=== PATIENT | female | born 1940 | race Two or more races ===

== ENCOUNTER 2017-05-21 13:51 | Outpatient (CLI) | payer OTHER ==
[~2017-05-21 13:51] MED LIST: METFORMIN HCL850 MG; VALSARTAN40 MG; XARELTO20 MG
== END 2017-05-21 14:05 | disposition home or self-care (01) ==
LOC: MRI 13:51
DX: M51.36 Other intervertebral disc degeneration, lumbar region (principal); M54.16 Radiculopathy, lumbar region
CPT/HCPCS: 72146; 72148

== ENCOUNTER 2017-07-26 15:23 | Outpatient (CLI) | payer OTHER | END 2017-07-26 16:40 | disposition home or self-care (01) | LOC: RAD 501 15:23 | DX: M25.512 Pain in left shoulder (principal) ==

== ENCOUNTER 2017-07-27 10:30 | Outpatient (CLI) | payer OTHER | END 2017-07-27 15:00 | disposition home or self-care (01) | LOC: TOM 10:30 | DX: S60.222A Contusion of left hand, initial encounter (principal); S80.02XA Contusion of left knee, initial encounter; M54.5 Low back pain; S40.012A Contusion of left shoulder, initial encounter ==

== ENCOUNTER 2017-09-20 15:11 | Outpatient (CLI) | payer OTHER | END 2017-09-20 15:16 | disposition home or self-care (01) | LOC: RAD 501 15:11 | DX: M54.2 Cervicalgia (principal); S42.142D Displaced fracture of glenoid cavity of scapula, left shoulder, subsequent encounter for fracture with routine healing ==

== ENCOUNTER 2017-09-28 16:00 | Outpatient (CLI) | payer OTHER | END 2017-09-28 16:18 | disposition home or self-care (01) | LOC: RAD 16:00 | DX: M25.551 Pain in right hip (principal); M54.5 Low back pain ==

== ENCOUNTER 2018-07-02 12:49 | Outpatient (CLI) | payer OTHER | END 2018-07-02 12:58 | disposition home or self-care (01) | LOC: SONOGRAMA 12:49 | DX: M75.111 Incomplete rotator cuff tear or rupture of right shoulder, not specified as traumatic (principal) ==

== ENCOUNTER 2021-04-13 11:13 | Outpatient (CLI) | payer OTHER | END 2021-04-13 11:14 | disposition home or self-care (01) | LOC: RAD 11:13 | PROVIDERS: ATTEND Internal Medicine Cardiovascular Disease | DX: I10 Essential (primary) hypertension (principal) ==

== ENCOUNTER → 2021-04-14 | Outpatient (CLI) | payer OTHER | END | disposition home or self-care (01) | LOC: NUCLEAR 10:00 | PROVIDERS: ATTEND Internal Medicine Cardiovascular Disease | DX: J44.9 Chronic obstructive pulmonary disease, unspecified (principal); I10 Essential (primary) hypertension ==

== ENCOUNTER 2021-07-26 13:44 | Outpatient (CLI) | payer OTHER | END 2021-07-26 13:46 | disposition home or self-care (01) | LOC: MRI 13:44 | PROVIDERS: ATTEND Internal Medicine Cardiovascular Disease | DX: G30.9 Alzheimer's disease, unspecified (principal); R51.9 Headache, unspecified | CPT/HCPCS: 70551 ==

== ENCOUNTER 2021-08-12 12:20 | Outpatient (CLI) | payer OTHER | END 2021-08-12 14:00 | disposition home or self-care (01) | LOC: RAD 12:20 | PROVIDERS: ATTEND Internal Medicine Cardiovascular Disease | DX: M25.561 Pain in right knee (principal); M25.551 Pain in right hip ==

== ENCOUNTER → 2021-08-12 12:33 | Outpatient (CLI) | payer OTHER | END | disposition home or self-care (01) | LOC: NUCLEAR 12:33 | PROVIDERS: ATTEND Orthopaedic Surgery | DX: M81.0 Age-related osteoporosis without current pathological fracture (principal) ==

== ENCOUNTER 2022-04-24 11:02 | Outpatient (CLI) | payer OTHER | END 2022-04-24 11:09 | disposition home or self-care (01) | LOC: RAD 11:02 | PROVIDERS: ATTEND Physical Medicine & Rehabilitation | DX: M54.2 Cervicalgia (principal); M54.50 Low back pain, unspecified ==

== ENCOUNTER → 2022-06-19 | Emergency (ER) | payer OTHER ==
[~2022-06-19] VITALS: Ht 162.6 cm; Wt 72.6 kg
== END | disposition left against medical advice (07) ==
LOC: ER 22:28
DX: Z53.21 Procedure and treatment not carried out due to patient leaving prior to being seen by health care provider (principal)

== ENCOUNTER 2022-06-29 15:23 | Emergency (ER) | payer OTHER ==
[~2022-06-29] VITALS: Ht 162.6 cm; Wt 75.7 kg
[2022-06-29] MEDS ORDERED: IRBESARTAN150 MG PO (15:58)
== END 2022-06-29 17:33 | disposition home or self-care (01) ==
LOC: ER 15:23
DX: I10 Essential (primary) hypertension (principal); E11.9 Type 2 diabetes mellitus without complications

== ENCOUNTER 2023-04-02 21:34 | Emergency (ER) | payer OTHER ==
[~2023-04-02] VITALS: Ht 162.6 cm; Wt 74.8 kg
[~2023-04-02 21:34] MED LIST changes: +IRBESARTAN150 MG PO
[2023-04-02] MEDS ORDERED: XARELTO20 MG PO (23:30)
[2023-04-02] MEDS ORDERED: ATORVASTATIN CA20 MG PO (23:31)
[2023-04-02] MEDS ORDERED: METFORMIN HCL1000 M2 PO (23:31)
[2023-04-02] MEDS ORDERED: BISOPROLOL (23:31)
[2023-04-02] MEDS ORDERED: SERETIDE (23:32)
[2023-04-02] MEDS ORDERED: [UNRECOGNIZED DRUG - OTHER] (23:32)
[2023-04-02] MEDS ORDERED: [UNRECOGNIZED DRUG - OTHER] (23:32)
[2023-04-02] MEDS ORDERED: ZONEGRAN25 MG PO (23:33)
== END 2023-04-03 12:49 | disposition home or self-care (01) ==
LOC: ER 21:35
DX: S92.352A Displaced fracture of fifth metatarsal bone, left foot, initial encounter for closed fracture (principal); W19.XXXA Unspecified fall, initial encounter; Y93.89 Activity, other specified; Y92.89 Other specified places as the place of occurrence of the external cause; Y99.8 Other external cause status

== ENCOUNTER 2023-04-13 10:38 | Outpatient (CLI) | payer OTHER ==
[~2023-04-13 10:38] MED LIST changes: +ATORVASTATIN CA20 MG PO; +BISOPROLOL; +METFORMIN HCL1000 M2 PO; +SERETIDE; +XARELTO20 MG PO; +ZONEGRAN25 MG PO; +[UNRECOGNIZED DRUG - OTHER]; +[UNRECOGNIZED DRUG - OTHER]
== END 2023-04-13 10:42 | disposition home or self-care (01) ==
LOC: RAD 10:38
PROVIDERS: ATTEND Orthopaedic Surgery
DX: S92.355A Nondisplaced fracture of fifth metatarsal bone, left foot, initial encounter for closed fracture (principal); S93.492A Sprain of other ligament of left ankle, initial encounter

== ENCOUNTER 2023-04-20 12:23 | Outpatient (CLI) | payer OTHER | END 2023-04-20 12:25 | disposition home or self-care (01) | LOC: RAD 12:23 | PROVIDERS: ATTEND Orthopaedic Surgery | DX: S92.355A Nondisplaced fracture of fifth metatarsal bone, left foot, initial encounter for closed fracture (principal) ==

== ENCOUNTER 2023-04-25 07:47 | Outpatient (CLI) | payer OTHER | END 2023-04-25 10:08 | disposition home or self-care (01) | LOC: MRI 07:47 | PROVIDERS: ATTEND Internal Medicine Cardiovascular Disease | DX: M46.47 Discitis, unspecified, lumbosacral region (principal) | CPT/HCPCS: 72148 ==

== ENCOUNTER 2023-05-10 14:06 | Outpatient (CLI) | payer OTHER | END 2023-05-10 14:11 | disposition home or self-care (01) | LOC: RAD 14:06 | PROVIDERS: ATTEND Orthopaedic Surgery | DX: S92.355D Nondisplaced fracture of fifth metatarsal bone, left foot, subsequent encounter for fracture with routine healing (principal) ==

== ENCOUNTER 2023-05-31 13:31 | Outpatient (CLI) | payer OTHER | END 2023-05-31 13:38 | disposition home or self-care (01) | LOC: RAD 13:31 | PROVIDERS: ATTEND Orthopaedic Surgery | DX: S92.355D Nondisplaced fracture of fifth metatarsal bone, left foot, subsequent encounter for fracture with routine healing (principal) ==

== ENCOUNTER 2023-06-07 16:05 | Outpatient (CLI) | payer OTHER | END 2023-06-07 16:11 | disposition home or self-care (01) | LOC: RAD 16:05 | PROVIDERS: ATTEND Physical Medicine & Rehabilitation | DX: M25.511 Pain in right shoulder (principal); M25.512 Pain in left shoulder ==

== ENCOUNTER 2024-04-18 12:03 | Outpatient (CLI) | payer OTHER | END 2024-04-18 12:10 | disposition home or self-care (01) | LOC: MRI 12:03 | PROVIDERS: ATTEND Internal Medicine Cardiovascular Disease | DX: M46.47 Discitis, unspecified, lumbosacral region (principal) | CPT/HCPCS: 72148 ==

== ENCOUNTER 2024-06-02 13:34 | Emergency (ER) | payer OTHER ==
[~2024-06-02] VITALS: Ht 160 cm; Wt 73.9 kg
[2024-06-02 19:20] LABS: HEMATOCRIT 43.5 % (36.0-45.00); HEMOGLOBIN 14.6 g/dL (12.0-15.00); MEAN CELL VOLUME 89.2 fL (80.00-100.00); MEAN CORPUSCULAR HEMOGLOBIN 29.9 pg (27.00-32.0); MEAN CORPUSCULAR HGB CONC 33.5 g/dl (32.0-36.0); PLATELET COUNT 246 K/uL (150-450); RED BLOOD COUNT 4.87 M/uL (4.00-6.00); RED CELL DISTRIBUTION WIDTH 15.2 % (11.5-14.5)
[2024-06-02 19:41] LABS: CALCIUM 8.9 mg/dL (8.5-10.1); CREATININE SERUM 1.14 mg/dL (0.55-1.02); GFR 45.63; POTASSIUM 3.6 mEq/L (3.5-5.1)
[2024-06-02 20:26] LABS: PH,URINE 5.5 (5.0-8.0); URINE APPEARANCE Cloudy; URINE BILIRRUBIN Small (NEGATIVE); URINE BLOOD Negative; URINE COLOR Dark Yellow; URINE GLUCOSE Negative (NEGATIVE); URINE KETONE Negative (NEGATIVE); URINE LEUKOCYTE Trace; URINE NITRATE Negative
[2024-06-02 20:29] LABS: URINE BACTERIA 5418.3 uL (0.0-1933); URINE CAST 7.21 uL (0.0-1.40); URINE EPITHELIAL CELLS 113.1 uL (0.0-38.8); URINE RBC 12.6 uL (0.0-20.8); URINE WBC 60.3 uL (0.0-23.2)
[2024-06-02 21:44] LABS: URINE PROTEIN 100 (NEGATIVE)
== END 2024-06-02 21:37 | disposition home or self-care (01) ==
LOC: ER 13:37
PROVIDERS: Emergency Medicine
DX: R53.81 Other malaise (principal); J10.1 Influenza due to other identified influenza virus with other respiratory manifestations; Z20.822 Contact with and (suspected) exposure to COVID-19

== ENCOUNTER 2024-08-01 07:23 | Outpatient (CLI) | payer OTHER | END 2024-08-01 07:24 | disposition home or self-care (01) | LOC: NUCLEAR 07:23 | PROVIDERS: ATTEND Internal Medicine | DX: I48.0 Paroxysmal atrial fibrillation (principal) | CPT/HCPCS: 78452; 93017; A9500; J0153 ==